=== PATIENT | female | born 1955 | race Asian ===

== ENCOUNTER → 2020-08-03 | Emergency (ER) | payer MEDICAID ==
[~2020-08-03] MED LIST: cloNIDine HCL 0.1 MG TABLET ONE
[2020-08-04 10:56] LABS: BASOPHILS % (AUTO) 0.4 % (0.0-2.0); EOSINOPHILS # (AUTO) 0.1 K/uL (0.0-0.4); HEMATOCRIT 35.7 % (36-48); HEMOGLOBIN 11.9 g/dL (12.0-16.0); LYMPHOCYTES # (AUTO) 2.1 K/uL (1.0-5.5); LYMPHOCYTES % (AUTO) 46.4 % (20.5-51.5); MEAN CORPUSCULAR HEMOGLOBIN 30 pg (27-31); MEAN CORPUSCULAR HGB CONC 33 % (32-36); MEAN CORPUSCULAR VOLUME 90 fL (79.0-98.0); MONOCYTES # (AUTO) 0.5 K/uL (0.0-1.0); MONOCYTES % (AUTO) 10.7 % (1.7-9.3); NEUTROPHILS # (AUTO) 1.9 K/uL (1.8-7.7); NEUTROPHILS % (AUTO) 40.5 % (40.0-70.0); PLATELET COUNT (AUTO) 213 K/uL (130-430); RED BLOOD CELL COUNT(AUTO) 3.95 MIL/uL (4.2-6.2); RED CELL DISTRIBUTION WIDTH 15.5 % (9.0-15.0)
[2020-08-04 10:58] LABS: PROTHROMBIN TIME 10.1 SECS (9.5-12.5); WHITE BLOOD COUNT (AUTO) 4.6 K/uL (4.8-10.8)
[2020-08-04 11:03] LABS: CALCIUM 8.3 mg/dL (8.4-11.0)
[2020-08-04 11:04] LABS: CREATININE 0.9 mg/dL (0.55-1.30); TOTAL BILIRUBIN 0.3 mg/dL (0.0-1.0)
[2020-08-04 11:05] LABS: ALBUMIN 3.5 g/dL (3.4-4.8)
--- NOTE | 2020-08-04 15:44 | NUR ---
SEE DOWNTIME CHARTING
== END | disposition home or self-care (01) ==
LOC: SED 19:01
DX: G45.9 Transient cerebral ischemic attack, unspecified (principal); I62.9 Nontraumatic intracranial hemorrhage, unspecified; Z20.828 Contact with and (suspected) exposure to other viral communicable diseases
CPT/HCPCS: 36415; 70450-TC; 71045; 76376; 80053; 85025; 85610-TC; 85730-TC; 93005; 99285

== ENCOUNTER 2024-01-07 10:00 | Emergency (ER) | payer MEDICAID, OTHER ==
[~2024-01-07] VITALS: Ht 157.5 cm; Wt 46.7 kg
[2024-01-07 10:16] VITALS: BP_SYST 199; PULSE 65; RESP 22; TEMP 98.3; O2SAT 99
[2024-01-07 13:42] VITALS: BP_SYST 138; PULSE 65; RESP 16; TEMP 97.6; O2SAT 98
== END 2024-01-07 13:41 | disposition home or self-care (01) ==
LOC: SED 10:00
DX: J02.9 Acute pharyngitis, unspecified (principal); I10 Essential (primary) hypertension; Z98.890 Other specified postprocedural states
CPT/HCPCS: 36415; 70490; 86308; 99284